=== PATIENT | male | born 1990 | race Two or more races ===

== ENCOUNTER 2019-05-21 11:17 | Emergency (ER) | payer MEDICAID ==
[~2019-05-21] VITALS: Ht 172.7 cm; Wt 90.0 kg
[2019-05-21 11:20] VITALS: BP 130/80
[2019-05-21] MEDS ORDERED: LIDOCAINE 1%-EPI 1:100K, 20ML ONE (11:57)
[2019-05-21] MEDS ORDERED: DIPH,PERTUSS(ACELL),TET VAC/PF 0.5 ML IM-VACC ONE ×2 (11:58→12:00)
[2019-05-21] MEDS ORDERED: LIDOCAINE 1%-EPI 1:100K, 20ML SQ ONE (12:00)
--- NOTE | 2019-05-21 12:02 | NUR ---
Called [facility] dispatch to ensure that they are aware of situation. Dispatch staff states that they are aware of this patient's info and have already interviewed [email or web address] No further action required at this time by hospital staff.
== END 2019-05-21 12:35 | disposition home or self-care (01) ==
LOC: ED 11:37
DX: S51.812A Laceration without foreign body of left forearm, initial encounter (principal); F17.200 Nicotine dependence, unspecified, uncomplicated; Y04.8XXA Assault by other bodily force, initial encounter; Y93.89 Activity, other specified; Y92.098 Other place in other non-institutional residence as the place of occurrence of the external cause; Y99.8 Other external cause status
CPT/HCPCS: 12031; 90471; 90715; 99284